=== PATIENT | female | born 1995 | race Caucasian/White ===

== ENCOUNTER 2019-07-05 13:08 | Day surgery (SDC) | payer BC ==
[~2019-07-05 13:08] MED LIST: FLU VACC QS2019-20(6MOS UP)/PF 60 MCG/0.5 ML SYRINGE IM ONE
== END 2019-07-05 15:20 | disposition home or self-care (01) ==
LOC: ULT 13:08
PROVIDERS: ATTEND Family Medicine
PROC: BG44ZZZ Ultrasonography of Thyroid Gland (ICD-10-PCS; principal; 2019-07-05)
PROC: 0GBJ3ZX Excision of Thyroid Gland Isthmus, Percutaneous Approach, Diagnostic (ICD-10-PCS; principal; 2019-07-05)
DX: E04.9 Nontoxic goiter, unspecified (principal); E06.3 Autoimmune thyroiditis; E28.2 Polycystic ovarian syndrome